=== PATIENT | male | born 1980 | race Caucasian/White ===

== ENCOUNTER 2017-01-08 13:06 | Emergency (ER) ==
[2017-01-08 13:11] VITALS: BP 101/64; TEMP 100.2; BMI 20.9
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
== END 2017-01-08 14:58 | disposition home or self-care (01) ==
LOC: ED 13:06
DX: S52.122A Displaced fracture of head of left radius, initial encounter for closed fracture (principal); V11.4XXA Pedal cycle driver injured in collision with other pedal cycle in traffic accident, initial encounter; F17.210 Nicotine dependence, cigarettes, uncomplicated
CPT/HCPCS: 99283

== ENCOUNTER 2017-12-23 17:21 | Emergency (ER) | payer OTHER ==
[2017-12-23 17:21] VITALS: BMI 20.9
[2017-12-23 17:29] VITALS: BP 132/86; TEMP 98.9
== END 2017-12-23 20:00 | disposition left against medical advice (07) ==
LOC: ED 17:21
DX: R07.89 Other chest pain (principal)